=== PATIENT | female | born 1940 | race Caucasian/White ===

== ENCOUNTER → 2016-05-02 | Outpatient (CLI) | payer OTHER | LOC: FIMAGING 08:27 | DX: Z12.31 Encounter for screening mammogram for malignant neoplasm of breast (principal) | CPT/HCPCS: G0202 ==

== ENCOUNTER → 2017-05-09 | Outpatient (CLI) | payer OTHER | LOC: FIMAGING 08:45 | PROVIDERS: ATTEND Internal Medicine | DX: Z12.31 Encounter for screening mammogram for malignant neoplasm of breast (principal); Z80.3 Family history of malignant neoplasm of breast ==

== ENCOUNTER → 2018-02-15 | Outpatient (CLI) | payer OTHER | LOC: FIMAGING 10:00 | PROVIDERS: ATTEND Internal Medicine | DX: Z13.820 Encounter for screening for osteoporosis (principal); M85.89 Other specified disorders of bone density and structure, multiple sites; E07.9 Disorder of thyroid, unspecified; Z78.0 Asymptomatic menopausal state ==

== ENCOUNTER 2018-05-04 15:06 | Emergency (ER) | payer OTHER ==
[2018-05-04] MEDS ORDERED: IBUPROFEN 600 MG TAB PO ONE (15:24)
--- NOTE | 2018-05-04 15:29 | EDPHY ---
H & P Stated Complaint: "vertigo" at baseline made her fall -face first onto street , R wrist pain Time Seen by Provider: 05/04/18 15:18 HPI/ROS: CHIEF COMPLAINT: Fall HISTORY OF PRESENT ILLNESS: The patient is a 77-year-old female who has daily episodes of intermittent vertigo. Today she was ambulating and had an episode when she fell and landed on her right face and right hand. She has bruising to the 3rd and 4th metacarpal areas of her right hand as well as moderate swelling. She also complains of abrasion to the right upper lip and cheek. No vision changes. No bloody nose. No headache or head injury. She has no neck pain. She is not on blood thinners. No dental pain or malocclusion. Severity: Mild Modifying factors: None REVIEW OF SYSTEMS: Constitutional: denies: chills, fever, recent illness, recent injury EENTM: See HPI Respiratory: denies: cough, shortness of breath Cardiac: denies: chest pain, irregular heart rate, lightheadedness, palpitations Gastrointestinal/Abdominal: denies: abdominal pain, diarrhea, nausea, vomiting, blood streaked stools Genitourinary: denies: dysuria, frequency, hematuria, pain Musculoskeletal: denies: joint pain, muscle pain Skin: denies: lesions, rash, jaundice, bruising Neurological: denies: headache, numbness, paresthesia, tingling, dizziness, weakness Hematologic/Lymphatic: denies: blood clots, easy bleeding, easy bruising Immunologic/allergic: denies: HIV/AIDS, transplant 10 systems reviewed and negative except as noted EXAM: GENERAL: Well-appearing, well-nourished and in no acute distress. HEAD: Atraumatic, normocephalic. EYES: Pupils equal round and reactive to light, extraocular movements intact, sclera anicteric, conjunctiva are normal. ENT: Abrasion to right upper lip, laceration to mucosal aspect of upper lip. No dental fractures or deformities. No malocclusion. TMs normal, nares patent , oropharynx clear without exudates. Moist mucous membranes. NECK: Normal range of motion, supple without lymphadenopathy or JVD. LUNGS: Breath sounds clear to auscultation bilaterally and equal. No wheezes rales or rhonchi. HEART: Regular rate and rhythm without murmurs, rubs or gallops. ABDOMEN: Soft, nontender, normoactive bowel sounds. No guarding, no rebound. No masses appreciated. BACK: No CVA tenderness, no spinal tenderness, step-offs or deformities EXTREMITIES: Bruising and slight swelling to right dorsal hand. Normal range of motion and strength. Normal wrist movements. NEUROLOGICAL: Cranial nerves II through XII grossly intact. Normal speech, normal gait. 5/5 strength, normal movement in all extremities, normal sensation , normal reflexes PSYCH: Normal mood, normal affect. SKIN: Abrasion to right cheek and forehead and upper lip. No external lacerations. Warm, dry, normal turgor, no visible rashes or lesions. Source: Patient, Family Exam Limitations: No limitations - Personal History Current Tetanus/Diphtheria Vaccine: Yes Current Tetanus Diphtheria and Acellular Pertussis (TDAP): Yes Tetanus Vaccine Date: unsure - Medical/Surgical History Hx Asthma: Yes Hx Chronic Respiratory Disease: No Hx Diabetes: No Hx Cardiac Disease: No Hx Renal Disease: No Hx Cirrhosis: No Hx Alcoholism: No Hx HIV/AIDS: No Hx Splenectomy or Spleen Trauma: No Other PMH: vertigo asthma. htn - Family History Significant Family History: No pertinent family hx - Social History Smoking Status: Never smoked Alcohol Use: None Constitutional: Initial Vital Signs Temperature (C) 36.5 C 05/04/18 15:11 Heart Rate 91 05/04/18 15:11 Respiratory Rate 22 H 05/04/18 15:11 Blood Pressure 159/74 H 05/04/18 15:11 O2 Sat (%) 100 05/04/18 15:11 O2 Delivery Mode Room Air Allergies/Adverse Reactions: metronidazole [From Flagyl] Allergy (Intermediate, Verified 12/01/11 16:29) G I symptoms Metronidazole HCl [From Flagyl] Allergy (Intermediate, Verified 12/01/11 16:29) G I symptoms Home Medications: Medication Instructions Recorded Albuterol [Proventil Inhaler HFA 1 puffs IH BID 12/29/11 (*)] Aspirin EC [Aspirin EC 81 mg (*)] 81 mg PO DAILY 12/29/11 Beclomethasone Qvar 40 [Qvar 40] 1 puffs IH BID 12/29/11 Calcium Carbonate [Calcium Carb 500 mg PO DAILY 12/29/11 Oral Liquid (OTC)] Calcium Carbonate [Tums 500MG (*)] 1,000 mg PO DAILY PRN 12/29/11 LEVOTHYROXINE SODIUM [Tirosint 50 mcg PO DAILY06 12/29/11 50mcg] Lisinopril [Zestril 40 mg (*)] 40 mg PO DAILY 12/29/11 Loperamide HCl [Imodium 2 mg (*)] 1 - 2 mg PO DAILY PRN 12/29/11 Melatonin [Melatonin 3 MG (*)] 3 mg PO HS 12/29/11 Metoprolol Tartrate [Lopressor 50 50 mg PO BID 12/29/11 mg (*)] Ondansetron Odt [Zofran Odt 4 mg 4 mg PO TID PRN 12/29/11 (*)] Pantoprazole Sodium [Protonix 40mg 40 mg PO BID 12/29/11 (*)] Pharmacy Completed 12/29/11 12/29/11 predniSONE 60 mg PO DAILY 12/29/11 traZODone [traZODONE 50MG (*)] 25 mg PO HS 12/29/11 Medical Decision Making - Diagnostics Imaging Results: Imaging Impressions Head CT 05/04/18 15:23 Impression: 1. Negative. No acute skull or facial fracture. 2. No acute intracranial hemorrhage or swelling. 3. Atrophy and mild periventricular white matter disease. Findings discussed with Emergency Department physician, TONY MARTI at 16:15. Hand X-Ray 05/04/18 15:24 Impression: There is no acute fracture identified. If there is a high clinical concern regarding an occult fracture, conservative management and short-term repeat radiographic follow-up in 7-14 days could be considered. Imaging: Discussed imaging studies w/ call out clerk Radiologist Procedures: Procedure: Laceration repair. Verbal consent was obtained from the patient. The 3 cm stellate lip mucosal laceration was anesthetized with 1% lidocaine with epi and bicarbonate locally infiltrated. The wound was irrigated copiously according to protocol, draped and explored to its base. It was approximately 1/2 cm deep. There were no deep structures involved. No tendon, nerve, or vascular injury was identified when explored through full range of motion. No foreign body was identified. The wound was repaired with 5.0 chromic gut, 5 sutures, interrupted. The wound repair was complex with multiple flap realignment. The procedure was performed by myself. A dressing was then placed with sterile gauze. ED Course/Re-evaluation: Head CT ordered in this adult patient for trauma for the following indication: Age greater than 65 years old 5:15 p.m. The patient reassured by imaging. Tolerated suture repair. Discussed follow-up and indications for returning. Feels comfortable going home. Differential Diagnosis: Partial list of the Differential diagnosis considered include but were not limited to; lip laceration, facial abrasions, contusion and although unlikely based on the history and physical exam, I also considered intracranial injury, cervical spine injury. I discussed these differential diagnoses and the plan with the patient as well as the usual and expected course. The patient understands that the diagnosis is provisional and that in medicine we are not always correct and that further workup is often warranted. Usual and customary warnings were given. All of the patient's questions were answered. The patient was instructed to return to the emergency department should the symptoms at all worsen or return, otherwise to followup with the physician as we discussed. - Data Points Medications Given: Discontinued Medications Hydrocodone Bitart/Acetaminophen ([place] 5/325) 2 tab PO EDNOW ONE Stop: 05/04/18 15:47 Last Admin: 05/04/18 15:59 Dose: 2 tab Ibuprofen (Motrin) 600 mg PO EDNOW ONE Stop: 05/04/18 15:25 Last Admin: 05/04/18 16:01 Dose: 600 mg Departure - Departure Disposition: Home, Routine, Self-Care Clinical Impression: Abrasion, multiple sites, upper lip laceration Condition: Fair Instructions: Laceration (ED), Soft Diet (ED), Care For Your Absorbable Stitches (ED) Referrals: Jeimy Page MD [Primary Care Provider] - As per Instructions
[2018-05-04] MEDS ORDERED: HYDROCODONE/APAP 5/325 TAB ONE (15:43)
[2018-05-04] MEDS ORDERED: HYDROCODONE/APAP 5/325 TAB PO ONE (15:46)
[2018-05-04 17:24] VITALS: BP 137/89
== END 2018-05-04 17:24 | disposition home or self-care (01) ==
PROC: 0CQ0XZZ Repair Upper Lip, External Approach (ICD-10-PCS; principal; 2018-05-04)
DX: S01.511A Laceration without foreign body of lip, initial encounter (principal); S00.81XA Abrasion of other part of head, initial encounter; S60.221A Contusion of right hand, initial encounter; W01.0XXA Fall on same level from slipping, tripping and stumbling without subsequent striking against object, initial encounter; Y92.410 Unspecified street and highway as the place of occurrence of the external cause; Y99.9 Unspecified external cause status

== ENCOUNTER → 2018-05-10 | Outpatient (CLI) | payer OTHER | LOC: FIMAGING 12:53 | PROVIDERS: ATTEND Internal Medicine | DX: Z12.31 Encounter for screening mammogram for malignant neoplasm of breast (principal) ==

== ENCOUNTER 2018-08-18 11:13 | Emergency (ER) | payer OTHER | END 2018-08-18 14:05 | disposition home or self-care (01) ==